=== PATIENT | female | born 1955 | race Two or more races ===

== ENCOUNTER 2018-08-01 14:09 | Emergency (ER) | payer MEDICAID ==
[~2018-08-01] VITALS: Ht 162.6 cm; Wt 99.6 kg
[~2018-08-01 14:09] MED LIST: ABILIFY5 MG PO; CEFPODOXIME PR200 MG PO; DOXYCYCLINE HY100 MG PO; GLIPIZIDE XL10 MG PO; KEFLEX500 MG PO; LANTUS100 UNITS/ SUB-Q; MAPAP500 M1 PO; METFORMIN HCL1000 MG PO; NOVOLOG100 UNITS/ SUB-Q; NYSTOP60 GM TOP; SEROQUEL100 MG PO; SIMVASTATIN10 MG PO; [UNRECOGNIZED DRUG - OTHER] VI
[2018-08-01] MEDS ORDERED: BACTRIM DS TAB1 EACH PO (18:31)
== END 2018-08-01 18:32 | disposition home or self-care (01) ==
LOC: ED 14:09
DX: N39.0 Urinary tract infection, site not specified (principal); E11.9 Type 2 diabetes mellitus without complications; F25.9 Schizoaffective disorder, unspecified; Z87.891 Personal history of nicotine dependence; Z88.8 Allergy status to other drugs, medicaments and biological substances
CPT/HCPCS: 80053; 81001; 85025; 87077; 87088; 87186; 99284

== ENCOUNTER 2024-09-11 15:12 | Emergency (ER) | payer SELFPAY ==
[~2024-09-11] VITALS: Ht 162.6 cm; Wt 84.8 kg
[~2024-09-11 15:12] MED LIST changes: +BACTRIM DS TAB1 EACH PO
[2024-09-11 18:15] LABS: BASOPHILS 0.1 % (0-2); EOSINOPHILS 1.6 % (0-6); HEMOGLOBIN 7.1 g/dL (12.0-18.0); LYMPHOCYTES 14.7 % (24-44); MCHC 30.6 g/dl (30-36); MCV 65.3 fl (81-99); MONOCYTES 4.9 % (0-12); NEUTROPHILS 78.7 % (39-80); PLATELET COUNT 389 K/uL (140-440); RBC 3.53 M/ul (4.3-5.7); RDW 18.2 (10.5-15.0)
[2024-09-11 18:33] LABS: ALBUMIN 1.7 g/dL (3.4-5.0); ALBUMIN/GLOBULIN RATIO 0.34 (1.1-2.4); ANION GAP 12.7 (7-21); BILIRUBIN, TOTAL 0.2 mg/dL (0.2-1.0); BUN/CREATININE RATIO 25.55 (6.0-28.6); CALCIUM 8.7 mg/dL (8.5-10.1); CREATININE, SERUM 0.9 mg/dL (0.55-1.02); POTASSIUM 3.7 mmol/L (3.5-5.1); PROTEIN, TOTAL 6.7 g/dL (6.4-8.2)
[2024-09-11] MEDS ORDERED: SODIUM CHLORIDE 0.9% 1,000 ML IV PRN (19:00)
[2024-09-11] MEDS ORDERED: DAPTOmycin 500 MG/10 ML VIAL IV ONE (19:45)
[2024-09-11] MEDS ORDERED: APIXABAN 5 MG TAB PO ONE (20:30)
[2024-09-11 21:13] LABS: ABO A; ANTIBODY SCREEN NEGATIVE; RH POSITIVE
[2024-09-11] MEDS ORDERED: QUETIAPINE FUMARATE 100 MG TAB PO SCH (22:25)
[2024-09-11] MEDS ORDERED: ACETAMINOPHEN 325 MG TAB PO PRN (22:30)
[2024-09-11] MEDS ORDERED: CEFEPIME HCL 2 GM in DEXTROSE 5% 100 ML IV ONE (22:30)
[2024-09-11] MEDS ORDERED: ondansetron HCL 4 MG/2 ML VIAL IV PRN (22:30)
[2024-09-11] MEDS ORDERED: MORPHINE SULFATE 4 MG/ML VIAL IV PRN (22:30)
[2024-09-11 22:48] LABS: ABO A; RH POSITIVE
[2024-09-11 22:48] LABS: IS CROSSMATCH COMPATIBLE
[2024-09-11 23:07] VITALS: BP 113/72
[2024-09-12] MEDS ORDERED: CEFEPIME HCL 2 GM in DEXTROSE 5% 100 ML IV SCH (06:00)
[2024-09-12] MEDS ORDERED: Insulin Regular, Human 100 UNIT/ML ML SUB-Q SCH (07:00)
[2024-09-12] MEDS ORDERED: DAPTOmycin 500 MG/10 ML VIAL IV SCH (09:00)
[2024-09-12] MEDS ORDERED: APIXABAN 5 MG TAB PO SCH (09:00)
== END 2024-09-11 22:45 | disposition left against medical advice (07) ==
LOC: ED 15:12
PROVIDERS: Emergency Medicine; Family Medicine
DX: L03.116 Cellulitis of left lower limb (principal); L03.115 Cellulitis of right lower limb; D64.9 Anemia, unspecified; I82.412 Acute embolism and thrombosis of left femoral vein; I82.432 Acute embolism and thrombosis of left popliteal vein; E11.9 Type 2 diabetes mellitus without complications; Z53.29 Procedure and treatment not carried out because of patient's decision for other reasons; Z87.891 Personal history of nicotine dependence; Z88.8 Allergy status to other drugs, medicaments and biological substances
CPT/HCPCS: 36415; 80053; 83605; 83735; 85025; 85060; 86850; 86900; 86901; 86922; 93971; J0878; J7030

== ENCOUNTER 2024-09-13 13:07 | Inpatient (IN) | payer MEDICARE ==
[~2024-09-13] VITALS: Ht 162.6 cm; Wt 89.8 kg
--- OUTSIDE RECORDS SUMMARY | 2024-09-13 13:08 | XMS ---
PreManage Notification: RADHA TOLBERT Security Flight Instructor Events No recent Security Events currently on file CRITERIA MET - [facility] - 2 Visits in 30 Days CARE PROVIDERS -, Deniz Fuller- Dentist: Air Brake Tester [facility] PHONE: [phone] Naheed has no Care Guidelines for this patient. [place] VISIT COUNT (12 MO.) 2 [facility] TOTAL 2 NOTE: Visits indicate total known visits. ED/UCC VISIT TRACKING (12 MO.) 09/13/2024 13:07 ERIC Wu OR TYPE: Emergency COMPLAINT: - LT LEG SWELLING 09/11/2024 15:13 ERIC Wu OR TYPE: Emergency COMPLAINT: - LEG SWELLING DIAGNOSES: - Acute embolism and thrombosis of left femoral vein - Acute embolism and thrombosis of left popliteal vein - Allergy status to other drugs, medicaments and biological substances - Anemia, unspecified - Cellulitis of left lower limb - Cellulitis of right lower limb - Localized swelling, mass and lump, lower limb, bilateral - Personal history of nicotine dependence - Procedure and treatment not carried out because of patient's decision for other reasons - Type 2 diabetes mellitus without complications INPATIENT VISIT TRACKING (12 MO.) No inpatient visits to display in this time frame [email or web address]
[2024-09-13] MEDS ORDERED: SODIUM CHLORIDE 0.9% 1,000 ML IV PRN (13:30)
[2024-09-13 13:35] LABS: BASOPHILS 0.3 % (0-2); EOSINOPHILS 0.7 % (0-6); HEMOGLOBIN 6.8 g/dL (12.0-18.0); LYMPHOCYTES 7.6 % (24-44); MCHC 30.8 g/dl (30-36); MCV 64.9 fl (81-99); MONOCYTES 3.6 % (0-12); NEUTROPHILS 87.8 % (39-80); PLATELET COUNT 402 K/uL (140-440); RBC 3.39 M/ul (4.3-5.7); RDW 17.8 (10.5-15.0)
[2024-09-13 13:55] LABS: ALBUMIN 1.8 g/dL (3.4-5.0); ALBUMIN/GLOBULIN RATIO 0.36 (1.1-2.4); ANION GAP 13.6 (7-21); BILIRUBIN, TOTAL 0.2 mg/dL (0.2-1.0); BUN/CREATININE RATIO 29.21 (6.0-28.6); CALCIUM 8.6 mg/dL (8.5-10.1); CREATININE, SERUM 0.89 mg/dL (0.55-1.02); POTASSIUM 4.6 mmol/L (3.5-5.1); PROTEIN, TOTAL 6.8 g/dL (6.4-8.2)
[2024-09-13 14:00] LABS: LACTIC ACID, BLOOD 2.9 mmol/L (0.4-2.0)
[2024-09-13] MEDS ORDERED: DAPTOmycin 500 MG/10 ML VIAL IV ONE (14:30)
[2024-09-13] MEDS ORDERED: CEFAZOLIN SODIUM 2 GM/20 ML SYR IV ONE (14:30)
[2024-09-13] MEDS ORDERED: VANCOMYCIN PER PHARMACY PROTOCOL IV ONE (14:30)
[2024-09-13] MEDS ORDERED: LINEZOLID 600 MG BAG IV ONE (15:00)
[2024-09-13 15:12] LABS: ABO A; ANTIBODY SCREEN NEGATIVE; IS CROSSMATCH COMPATIBLE; RH POSITIVE
[2024-09-13 15:23] LABS: BILIRUBIN, URINE NEGATIVE (negative); BLOOD/HGB, URINE TRACE-I (Negative); KETONE, URINE NEGATIVE (Negative); LEUK ESTERASE, URINE SMALL (negative); NITRITE, URINE POSITIVE (negative)
[2024-09-13 15:37] LABS: BACTERIA, URINE 1+ /hpf (negative); CASTS, URINE NONE SEEN \\lpf; COLLECTION TYPE, URINE CLEAN CATCH; CRYSTALS, URINE NONE SEEN (0-1+); EPITHELIAL CELLS, URINE NONE SEEN /lpf (0-1+); REFLEX CULTURE, URINE Yes (No)
[2024-09-13] MEDS ORDERED: Rivaroxaban 10 MG TAB PO ONE (16:00)
[2024-09-13] MEDS ORDERED: DEXTROSE 5% 1,000 ML IV PRN (16:30)
[2024-09-13] MEDS ORDERED: ACETAMINOPHEN 325 MG TAB PO PRN (16:30)
[2024-09-13] MEDS ORDERED: DEXTROSE 50% 50 ML SYR IV PRN ×2 (16:30)
[2024-09-13] MEDS ORDERED: IBLOOD GLUCOSE TEST STRIP 1 EA TEST XX PRN (16:30)
[2024-09-13] MEDS ORDERED: ondansetron HCL 4 MG/2 ML VIAL IV PRN (16:30)
[2024-09-13] MEDS ORDERED: GLUCAGON,HUMAN RECOMBINANT 1 MG/ML VIAL SUB-Q PRN (16:30)
[2024-09-13] MEDS ORDERED: IBLOOD GLUCOSE TEST STRIP 1 EA TEST VI SCH (17:00)
[2024-09-13] MEDS ORDERED: INSULIN LISPRO 100 UNIT/ML ML SUB-Q SCH (17:00)
--- NOTE | 2024-09-13 17:40 | NUR ---
PT TO RM 115 VIA STRETCHER FROM ER. REPORT RECEIVED FROM LAKE FELIZ. PT HAS BLOOD INFUSING (STARTED IN ER) TO R) AC, PT TOLERATING WELL. ROOM ORIENTATION COMPLETE AND CALL LIGHT WITHIN REACH.
[2024-09-13 17:54] VITALS: BP 119/69
--- NOTE | 2024-09-13 18:26 | NUR ---
PT SITTING UP IN BED EATING DINNER, TOLERATING WELL. LLE ELEVATED ON PILLOW, PICTURES TAKEN. BED ALARM ON. CALL LIGHT WITHIN REACH. NO REQUESTS AT THIS TIME.
--- NOTE | 2024-09-13 19:58 | NUR ---
RECEIVED REPORT FROM VASU AT 1910. PT EATING DINNER WITH LIGHTS ON. BEDALARM IN PLACE. AT 1949, THIS RN INTO ROOM, INTRODUCED SELF, UPDATED WHITE BOARD. PT ATE 100% DINNER. PT ASKED ABOUT THE "PEE" TUBE. REASSURANCE GIVEN. ASSISTED WITH TV AND CHANNEL.
[2024-09-13 20:11] VITALS: BP 112/46
--- NOTE | 2024-09-13 20:20 | NUR ---
ADMISSION ASSESSMENT COMPLETED. A/O, WITH CONVERSATIONS VARYING ON AND OFF TOPIC.IV FLUSHES WELL, SL. RA. RIGHT LEG WITHTRACE EDEMA, NONPITTING, SKIN IS THICK, LEATHERY TEXTURE. BACK CALF WITH WRINKLES, WITH PATCHY AREA OF PEELING SCALEY SKIN. DRY, AND WARM, NOT HOT. LEFT LEG, FOOT THICK LEATHERY TEXTURE, SWOLLEN, RED, HOT. ANKLE, MERA RED HOT WITH WHITE SCALING AREAS. BACK CALF WITH WEEPING AREAS, SMALL BLISTERS. SHINNY. COMPLAINS OF PAIN IN LEFT LEG, HANGING IT OFF THE BED. ENCOURAGED ELEVATING LEG HOWEVER SHE REFUSED SAID IT FEELS BETTER HANGING OFF THE BED. STATES SHE SLEEPS IN A CHAIR AT HOME. PT TELLING THIS RN THAT SHE HAD "BAD BLOOD" SO SHE GOT SOME NEW BLOOD TODAY. VS COMPLETED. PUREWICK IN PLACE.
[2024-09-13] MEDS ORDERED: Rivaroxaban 10 MG TAB PO SCH (21:30)
--- NOTE | 2024-09-13 21:34 | EKG ---
[facility] [address] [facility] [place] [address] Signed Sinus tachycardia Inferior infarct , age undetermined Possible Anterior infarct , age undetermined Abnormal ECG No previous ECGs available Confirmed by Anuja Schneider MD () on 09/13/2024 9:34:37 PM Electronically Signed By: ANUJA SCHNEIDER MD 09/13/24 2134 PATIENT NAME: IRIS TOLBERTA Traan Electrocardiogram DATE OF : 59 PHYSICIAN: ANUJA SCHNEIDER MD REPORT #: [id number] REPORT IS CONFIDENTIAL AND NOT TO BE RELEASED WITHOUT AUTHORIZATION
[2024-09-13] MEDS ORDERED: CEFTRIAXONE SODIUM 2 GM in SODIUM CHLORIDE 0.9% 100 ML IV SCH (21:40)
[2024-09-13 21:41] LABS: BASOPHILS 0.4 % (0-2); EOSINOPHILS 1.2 % (0-6); HEMATOCRIT 22.6 % (35.0-50.0); HEMOGLOBIN 7.1 g/dL (12.0-18.0); LYMPHOCYTES 11.6 % (24-44); MCH 21.1 (27-36); MCHC 31.4 g/dl (30-36); MCV 67.1 fl (81-99); MONOCYTES 4.1 % (0-12); NEUTROPHILS 82.7 % (39-80); PLATELET COUNT 349 K/uL (140-440); RBC 3.37 M/ul (4.3-5.7); RDW 19.2 (10.5-15.0)
[2024-09-13] MEDS ORDERED: SODIUM CHLORIDE 0.9% 1,000 ML IV SCH (21:45)
[2024-09-13] MEDS ORDERED: CEFTRIAXONE SODIUM 2 GM VIAL ONE (21:52)
[2024-09-13 22:27] LABS: IS CROSSMATCH COMPATIBLE
--- NOTE | 2024-09-13 23:20 | NUR ---
IV SITE FLUSHED WNL, DRESSING ON IV CHANGED. BLOOD RETURN NOTED. BLOOD PRODUCTS STARTED AT 2316, INFUSING WITH PUMP. TWO RN VERIFICATION WITH TRINI MEDINA PER POLICY. VSS. TRINI MEDINA REMAINS IN ROOM FOR MONITORING.
--- NOTE | 2024-09-13 23:51 | NUR ---
ROUNDED ON PT. PT MOSTLY SLEEPY, BUT WAKENS WITH NOISE. BLOOD INFUSING, WNL.
[2024-09-14] VITALS (10 sets, daily range): BP systolic 111–128; BP diastolic 45–53
--- NOTE | 2024-09-14 01:58 | NUR ---
INFUSION OF BLOOD COMPLETE AT 0125. PT MOSTLY SLEEPY, WAKES TO NOISE. PUREWICK WITH SHAHNAZ URINE. PT DENIES NEEDS.
--- NOTE | 2024-09-14 03:20 | NUR ---
ROUNDED ON PT. EYES CLOSED RESP ENEN, UNLABORED.
--- NOTE | 2024-09-14 05:10 | NUR ---
ASSESSMENT COMPLETE. NOTED TEMP 100.0; LLE UNCHANGED THIS SHIFT. DRESSING SATURATED, CHANGED, WITH ABD AND GAUZE WRAP. PT STATES PAIN ONLY WHEN ANKLE IS MOVED, AND SOME BURNING LLE CALF, BUT IS IMPROVED SINCE ADMISSION. PUREWICK CHANGED, INCONT CARE, LARGE INCONT URINE. NOTED PT LIFTING LEFT LEG MUCH BETTER THAN BEGINING OF SHIFT. SHE WAS UNABLE TO ASSIST WITH THE LIFT, BUT THIS AM, SHE LIFTS HER LEG UP IN THE AIR FOR THE DRESSING CHANGE. TURNS SELF WITH ASSISTANCE.
[2024-09-14 06:24] LABS: BASOPHILS 0.2 % (0-2); EOSINOPHILS 1.3 % (0-6); HEMATOCRIT 23.6 % (35.0-50.0); HEMOGLOBIN 7.7 g/dL (12.0-18.0); LYMPHOCYTES 13.9 % (24-44); MCH 22.3 (27-36); MCHC 32.6 g/dl (30-36); MCV 68.4 fl (81-99); MONOCYTES 4.9 % (0-12); NEUTROPHILS 79.7 % (39-80); PLATELET COUNT 304 K/uL (140-440); RBC 3.46 M/ul (4.3-5.7); RDW 21.2 (10.5-15.0)
[2024-09-14 06:46] LABS: ALBUMIN 1.3 g/dL (3.4-5.0); ALBUMIN/GLOBULIN RATIO 0.33 (1.1-2.4); ANION GAP 12.5 (7-21); BILIRUBIN, TOTAL 0.6 mg/dL (0.2-1.0); BUN/CREATININE RATIO 22.03 (6.0-28.6); CALCIUM 7.8 mg/dL (8.5-10.1); CREATININE, SERUM 0.59 mg/dL (0.55-1.02); MAGNESIUM 1.4 mg/dL (1.8-2.4); PHOSPHORUS, INORGANIC 2.6 mg/dL (2.5-4.9); POTASSIUM 4.5 mmol/L (3.5-5.1); PROTEIN, TOTAL 5.2 g/dL (6.4-8.2)
--- NOTE | 2024-09-14 07:15 | NUR ---
REPORT RECEIVED FROM ELEVATING GRADER OPERATOR RN PATIENT RESTING IN BED. REQUESTING FRESH ICE WATER. ICE WATER GIVEN. PATIENT DENIES ANY FURTHER NEEDS. CALL LIGHT WITHIN REACH.
--- NOTE | 2024-09-14 07:39 | NUR ---
UR CLINICAL REVIEW: 2 MN FOR VERSALUS-PER CORNER CUTTER MACHINE OPERATOR MEETS INPT FOR CELLULITIS/DVT MEDICARE INPT 09/13/24 @ 1631 ORDER MATCHES REG NO AUTH REQUIRED PER MEDICARE GUIDELINES DISCHARGE TO HOME WHEN STABLE
[2024-09-14] MEDS ORDERED: Rivaroxaban 10 MG TAB PO SCH (08:00)
[2024-09-14] MEDS ORDERED: MAGNESIUM SULFATE 2 GM/50 ML BAG IV SCH (08:00)
--- NOTE | 2024-09-14 08:15 | NUR ---
IN TO ROUND ON PATIENT. DENEIS ANY NEEDS AT THIS TIME. IVF INFUSING WITH NO ISSUES. CALL LIGHT WITHIN REACH BED ALARM ON.
[2024-09-14] MEDS ORDERED: LINEZOLID 600 MG BAG IV SCH (09:00)
[2024-09-14] MEDS ORDERED: MICONAZOLE NITRATE 1 EA BTL TOP SCH (09:00)
--- NOTE | 2024-09-14 09:46 | NUR ---
PATIENT RESTING IN BED EATING BREAKFAST. DENIES ANY PAIN OR DISCOMFORT AT THIS TIME. AM MEDICATIONS ADMINSTERED. IV SITE PATENT AND WNL. DRESSING TO LLE REMAINS CDI. PATIENT LUNG SOUNDS CTA DIM IN BASES. HEART SOUNDS REGULAR. BOWEL TONES ACTIVE X 4. PEDAL PULSES PALPABLE. NOTED REDNESS TO LLE REMAINS WITHIN DRAWN MARGINS. DENEIS ANY FURTHER NEEDS CALL LIGHT WITHIN REACH.
--- NOTE | 2024-09-14 10:37 | NUR ---
ALERT AND ORIENTED IN BED, LEGS ELEVATED. SHE LIVES WITH SISTER IN [place]. THEY DO HAVE 5 STEPS TO GET INTO THE HOME BUT THERE ARE RAILS SO SHE DOES NOT HAVE AN ISSUE WITH THE STAIRS. SHE HAS NO DME. PATIENT ALSO HAS NO PCP. SHE DOES NOT DRIVE AND NIETHER DOES HER SISTER. THEY PRIMARILY UTILIZE PUBLIC TRANSPORT. PATIENT HAS DIFFICULTY WITH FOOD, BUT DOES UTILIZE THE FOOD PANTRY TWICE/WEEK FOR FOOD. NO SNAP BENEFITS. STATES SHE THINKS THEY HAVE ENOUGH FOOD USING THE PANTRY. ATTEMPT TO ESTABLISH PCP AT [facility] [phone]. THEY ARE REQUESTING RECORDS BE FAXED TO [phone] FOR REVIEW. RECORDS FAXED.
--- NOTE | 2024-09-14 10:39 | NUR ---
VISITED DURING SPIRITUAL CARE ROUNDS. PT IN OVERALL GOOD SPIRITS, TALKED OF ANIMALS OWNED, FAMILY, DENIED IMMEDIATE NEEDS. CORE LAYER MACHINE OPERATOR PROVIDED SUPPORTIVE PRSENCE, HOSPITALITY, PRAYER, FACILITATED INTERACTION WITH THERAPY ANIMAL. PT EXPRESSED GRATITUDE.
--- NOTE | 2024-09-14 10:42 | NUR ---
MED REC COMPLETE
--- NOTE | 2024-09-14 11:00 | NUR ---
PATIENT NOTED TO HAVE INCONTENT EPISODE OF STOOL. PAITENT BREIF CHANGED AND NEW PUREWICK PLACED. POWDER APPLIED TO PANNUS AND GROIN AREA. NO FURTHER NEEDS. CALL LIGHT WITHIN REACH.
[2024-09-14] MEDS ORDERED: PHARMACY RENAL DOSE ADJUSTMENT 1 DOSE MISC PO SCH (12:00)
--- NOTE | 2024-09-14 12:29 | NUR ---
PATIENT RESTING IN BED LISTENING TO MUSIC. DENIES ANY NEEDS. SS INSULIN ADMINSTERED. IV SITE REMAINS WNL. IVF INFUSING WNL. CALL LIGHT WITHIN REACH.
--- NOTE | 2024-09-14 13:39 | NUR ---
PT RESTING IN BED, FINISHED WITH LUN, GOOD APPETITE, STATES THE MEAL WAS WONDERFUL. IV FLUIDS STARTED, (R) AC FLUSHED WELL. DENIES NEEDS, LISTENING TO MUSIC, CALL LIGHT WITHIN REACH.
--- NOTE | 2024-09-14 15:18 | NUR ---
PHARMACIST MENTIONED THIS PATIENT WOULD LIKE TO TALK TO A DIETITIAN ABOUT A DIABETIC DIET. THIS RD MET WITH PATIENT THIS AFTERNOON. PATIENT REPEATED HERSELF MULTIPLE TIMES. SHE LIVES WITH HER OLDER SISTER IN [facility]. SHE HAS HAD TYPE 2 DM SINCE 2016, DOES NOT NORMALLY TAKE INSULIN AT HOME. PATIENT STATES HER SISTER TOLD HER TO EAT MORE SALADS AND KALE. I PROVIDED PATIENT WITH A DIABETES-FRIENDLY PLATE PICTURE. EXPLAINED HALF OF THE PLATE SHOULD BE NON-STARCHY VEGGIES, 1/4 OF THE PLATE SHOULD BE PROTEIN, AND THE OTHER 1/4 OF THE PLATE SHOULD BE STARCH/GRAIN. PROVIDED A LIST OF NON-STARCHY VEGGIES - THESE DON'T RAISE THE BLOOD SUGAR, NEITHER DO PROTEINS. PATIENT SEEMS TO EAT TORTILLAS, PASTAS, BREADS, AND ICE CREAM REGULARLY. EXPLAINED THAT SHE CAN STILL HAVE 1 SMALL TORTILLA, BUT DEFINITELY HAVE MEAT OR CHICKEN AND LOTS OF OTHER VEGGIES WITH IT. LOW CARB SNACK LIST, CARB COUNTING HANDOUT FOR DIABETES, AND LOW GLYCEMIC FRUIT HANDOUT PROVIDED. NOT SURE IF PATIENT GRASPED THE INFO VERY WELL SINCE SHE REPEATED HERSELF A FEW TIMES. SHE IS ENJOYING THE MEALS ON A 60 GM CONS CARB DIET. PATIENT DOES NOT APPEAR AT NUTRITION RISK AT THIS TIME. RD TO FOLLOW UP IN 7-10 DAYS IF STILL HERE.
--- NOTE | 2024-09-14 15:29 | NUR ---
[facility] DECLINED PATIENT. CALLED [facility] IN [place], [place] AT [phone] TO SCHEDULE FOLLOW-UP. THEY STATE SHE HAS BEEN SEEN IN THEIR CLINIC PREVIOUSLY FOLLOW-UP APPOINTMENT SCHEDULED FOR SUNDAY, SEPTEMBER 22, 2024 @ 1120. CLINICALS FAXED TO CLINIC AT FAX [phone].
--- NOTE | 2024-09-14 16:15 | NUR ---
PATIENT RESTING IN BED. DRESSING TO LLE REMAINS CDI AT THIS TIME. REDNESS REMAINS WITHIN MARGINS. NO FURTHER NEEDS. CALL LIGHT WITHIN REACH.
--- NOTE | 2024-09-14 17:27 | NUR ---
PT SITTING UP IN HER BED HAVING DINNER. FRESH ICE WATER PROVIDED, PT REQUESTING SOMETHING TO DRINK WITH DINNER APPLE JUICE GIVEN. PT INSULIN GIVEN PER SLIDING SCALE, ALONG WITH MEDS, TOLERATED WELL - SEE MAR. PT DENIES ANY FURTHER NEEDS AT THIS TIME. CALL LIGHT WITHIN REACH.
--- NOTE | 2024-09-14 18:08 | NUR ---
IN TO ROUND ON PATIENT. DRESSING TO LLE REMAINS IN PLACE. IV SITE WNL. IVF INFUSING WNL. DENIES ANY FURTHER NEEDS. CALL LIGHT WITHIN REACH.
--- NOTE | 2024-09-14 18:53 | NUR ---
PATIENT IS IN BED AT THIS TIME, DIRECTOR OF MANAGED CARE CHARTED VITALS AND I&O'S, CALL LIGHT WITH IN REACH. NOTHING ELSE NEEDED AT THIS TIME.
--- NOTE | 2024-09-14 20:08 | NUR ---
Received report. Pt alert, resting in bed, no needs at this time.
[2024-09-14] MEDS ORDERED: CEFTRIAXONE SODIUM 2 GM VIAL ONE (20:11)
--- NOTE | 2024-09-14 21:02 | NUR ---
ASSESSMENT AND EVENING MEDS. CURRENTLY RUNNING CEFTRIAXONE
--- NOTE | 2024-09-14 21:32 | NUR ---
[facility]ED [facility]OLID. [facility]
--- NOTE | 2024-09-14 21:45 | NUR ---
APPROX TIME: MARCELLA LIAO CALLED AND ASKED FOR pt UPDATE. pt GAVE THIS RN VERBAL OKAY TO PROVIDE UPDDATE. PRIMARY RN IN ANOTHER ROOM AND UNAVAILABLE TO GIVE UPDATE AT THIS TIME. UPDATE GIVEN TO MARCELLA, QUESTIONS ANSWERED.
[2024-09-15] VITALS (7 sets, daily range): BP systolic 120–128; BP diastolic 57–65
--- NOTE | 2024-09-15 00:19 | NUR ---
CHANGED IV FLUID BAG. PT ALERT, CALMLY WATCHING TV. NO NEEDS ID'D. CALL LIGHTI N REACH
--- NOTE | 2024-09-15 02:52 | NUR ---
Pt alert, resting in bed watching TV. Call light in reach
--- NOTE | 2024-09-15 04:49 | NUR ---
PT ASLEEP, VISIBLE RISE AND FALL OF CHEST. CALL LIGHT IN REACH ON BEDSIDE TABLE
--- NOTE | 2024-09-15 05:13 | NUR ---
A&Ox4, pleasant. LLE cellulitis with redness and edema, elevated on pillow overnight. Pt declines OOB on shift. Encouraged to shift weight frequently. Plan for possible dc home today.
[2024-09-15 05:24] LABS: BASOPHILS 0.3 % (0-2); EOSINOPHILS 2.8 % (0-6); HEMATOCRIT 25.3 % (35.0-50.0); HEMOGLOBIN 8.4 g/dL (12.0-18.0); LYMPHOCYTES 19.2 % (24-44); MCH 22.8 (27-36); MCV 69.1 fl (81-99); NEUTROPHILS 72.7 % (39-80); PLATELET COUNT 333 K/uL (140-440); RBC 3.67 M/ul (4.3-5.7); RDW 21.5 (10.5-15.0)
[2024-09-15 05:46] LABS: ALBUMIN 1.5 g/dL (3.4-5.0); ALBUMIN/GLOBULIN RATIO 0.36 (1.1-2.4); ANION GAP 9.5 (7-21); BILIRUBIN, TOTAL 0.3 mg/dL (0.2-1.0); BUN/CREATININE RATIO 12.5 (6.0-28.6); CALCIUM 7.9 mg/dL (8.5-10.1); CREATININE, SERUM 0.56 mg/dL (0.55-1.02); POTASSIUM 4.5 mmol/L (3.5-5.1); PROTEIN, TOTAL 5.7 g/dL (6.4-8.2)
--- NOTE | 2024-09-15 06:22 | NUR ---
VETERINARY VIRUS SERUM INSPECTOR OBTAINED VITALS AND I&O. PT STATES NO NEEDS AT THIS TIME. CALL LIGHT WITHIN REACH.
--- NOTE | 2024-09-15 07:20 | NUR ---
REPORT RECEIVED FROM WEIGHT REDUCTION SPECIALIST RN. PATIENT RESTING IN BED TALKING ON THE PHONE. IV INFUSING WNL. PATIENT DENIES ANY NEEDS AT THIS TIME. CALL LIGHT WITHIN REACH.
--- NOTE | 2024-09-15 08:15 | NUR ---
PATIENT AWAKE EATING BREAKFAST IN BED. DENIES ANY PAIN OR DISCOMFORT. IV SITE PATENT. IV ABX ADMINISTERED. PATIENT NOTED TO HAVE LARGE LOOSE BM. BEDDING CHANGED, PATIENT CLEANED NEW GOWN PUT ON PATIENT. NOTED SKIN BREAKDOWN IN GROIN AND UNDER PANNUS. DESENIX POWDER APPLIED PER ORDERS. NEW PUREWICK PLACED. PATIENT WITH NO FURTHER NEEDS. CALL LIGHT WITHIN REACH.
--- NOTE | 2024-09-15 08:58 | NUR ---
3PA BED CHANGED. SPITZ BATH GIVEN. PUREWICK CHANGED 0845. CLEAN GOWN PROVIDED. TRINI SOLIS APPLIED POWDER TO PATIENT'S GROIN, BELLY, AND UNDER BREASTS. STUDENT NURSE KAMERON HOOKED UP IV.
[2024-09-15] MEDS ORDERED: INSULIN GLARGINE-YFGN 100 UNIT/ML ML SUB-Q SCH (09:00)
--- NOTE | 2024-09-15 09:52 | NUR ---
PATIENT WORKING WITH PT AT THIS TIME.
--- NOTE | 2024-09-15 10:22 | NUR ---
PATIENT AWAKE RESTING IN RECLINER. REPORTS PAIN TO LLE. PRN ADMINSTERED. NO FURTHER NEEDS. CALL LIGHT WITHIN REACH. CHAIR ALARM IN PLACE.
--- NOTE | 2024-09-15 10:31 | NUR ---
LLE NOTED TO HAVE INCREASED WEAPING. LLE PLACED ON CHUCKS PAD AND LEG IS MEL AT AT THIS TIME.
--- NOTE | 2024-09-15 11:18 | NUR ---
PT/OT WORKED WITH PATIENT AND THEY ARE CURRENTLY SITTING UP IN THEIR CHAIR. CALL LIGHT AND PERSONAL ITEMS ARE WITHIN REACH. NO AZEEM WERE REQUESTED.
--- NOTE | 2024-09-15 11:31 | NUR ---
PT WAS ON THE PHONE WITH THE KITCHEN ORDERING LUNCH. PT ORDERED ALL THE ITEMS ON THE MENU AND SEEMED CONFUSED WHEN THE CAFETERIA QUESTIONED HER CHOICES.
--- NOTE | 2024-09-15 12:08 | NUR ---
PATIENT RESTING IN RECLINER. MD DISCUSSED POC WITH PATIENT. BLOOD SUGAR OBTAINED.
--- NOTE | 2024-09-15 14:24 | NUR ---
PATIENT WAS IN HER CHAIR AT THIS TIME, BIRD KEEPER ASSISTED TO THE RESTROOM AND BACK TO CHAIR. BIRD KEEPER CHARTED VITALS AND I&O'S, GOT FRESH ICE AND WATER, AND NEW CHUCKS. CALL LIGHT WITH IN REACH AND NOTHING ELSE NEEDED AT THIS TIME.
--- NOTE | 2024-09-15 15:40 | NUR ---
PATIENT RESTING IN RECLINER. DENIES ANY PAIN OR DISCOMFORT. LLE REMAINS ELEVATED. REDNESS TO LLE REMAINS WITHIN DRAWN ON MARGINS. LLE IS MEL WITH NOTED SKIN BREAKDOWN. LLE CONTINUES TO WEAP WITH YELLOW DRAINAGE. IVF INFUSING WNL. IV SITE PATENT. NO FURTHER NEEDS AT THIS TIME. CALL LIGHT WITHIN REACH. CHAIR ALARM IN PLACE.
--- NOTE | 2024-09-15 16:30 | NUR ---
ROUNDING ON PATIENT. DENEIS ANY NEEDS AT THIS TIME. OT STAFF WITH PATIENT.
--- NOTE | 2024-09-15 17:30 | NUR ---
VSS. CHEMICAL PLANT OPERATOR STAFF ASSISTED PATIENT TO BATHROOM WITH 1 PA ASSIST AND FWW. PATIENT TOLLERATED WELL VOID AND BM NOTED. PATIENT LLE REMAINS MEL. REDNESS IS RECEEDING WITHIN DRAWN MARGINS. PATIENT DENIES ANY PAIN AT THIS TIME. WHEEPING CONTINUES. PATIENT WITH NO FURTHER NEEDS. CALL LIGHT WITHIN REACH. CHAIR ALARM IN PLACE.
--- NOTE | 2024-09-15 18:20 | NUR ---
PATIENT WAS IN HER ROOM YELLING VERY LOUDLY, SHOUTING THE F WORD AT "SOMEONE" MARTITA ALVARENGA AND I WENT TO CHECK ON HER AND MAKE SURE SHE WAS OK. SOON WE KNOCKED AND OPENED THE DOOR SHE SAID SHE WAS FINE. THERE WAS NO ONE IN THE ROOM AND SHE WAS NOT ON THE PHONE. SHE SAID SHE WAS GOOD AND DIDNT NEED ANYTHING. THEN SOON WE SHUT THE DOOR SHE STARTED TALKING AGRESSIVLY TO "SOMEONE" AGAIN. SHE HAS BEEN TALKING TO NO ONE ALL DAY AND IT HAS ESCALATED THE DAY HAS PROGRESSED.
--- NOTE | 2024-09-15 18:32 | NUR ---
PATIENT WAS HEARD ANGRILY YELLING AT INCREASING VOLUME. MARTITA ALVARENGA AND I WENT IN TO CHECK ON THEM AND THEY WERE PLEASANT AND HAPPY TO SEE US. PATIENT INFORMED US THEY WERE TALKING TO THEMSELF AND THEY WERE OKAY. CARES WERE REFUSED. CHARGE NURSE AYALA AND RN IRMA INFORMED. PATIENT IS SAFE AND SITTING UP IN THEIR CHAIR WITH THE CHAIR ALARM SET.
--- NOTE | 2024-09-15 19:43 | NUR ---
RECEIVED REPORT. PT EATING DINNER IN CHAIR, NO NEEDS CURRENTLY. CALL LIGHT IN REACH ON TABLE
[2024-09-15] MEDS ORDERED: CEFTRIAXONE SODIUM 2 GM VIAL ONE (20:21)
--- NOTE | 2024-09-15 20:53 | NUR ---
VITALS, ASSESSMENT, AND BEGAN EVENING MEDS. ASSISTED FROM CHAIR TO BATHROOM, THEN BACK TO BED. GIVEN TYLENOL FOR LLE PAIN. ELEVATED AFFECTED LIMB, AND LEFT OPEN TO AIR. CALL LIGHT IN REACH, NO FURTHER NEEDS AT THIS TIME
--- NOTE | 2024-09-15 21:02 | NUR ---
MECHANICAL SYSTEMS DESIGNER OBTAINED VITALS AND I&O. PUREROCCK CHANGED. PT STATES NO FURTHER NEEDS AT THIS TIME. CALL LIGHT WITHIN REACH AND RN IN ROOM.
--- NOTE | 2024-09-15 21:50 | NUR ---
INITIATED IV LINEZOLID AND REFRESHED PT WATER. HELPED ADJUST IN BED. PT REPORTS SHE WOULD LIKE TO SLEEP TONIGHT, SHE DID NOT SLEEP WELL LAST NIGHT. CALL LIGHT IN REACH, BED ALARM ACTIVE
--- NOTE | 2024-09-16 00:05 | NUR ---
Pt awake in bed eating leftovers from dinner. No needs at this time, denies pain presently. Call light in reach
--- NOTE | 2024-09-16 03:20 | NUR ---
PT AWAKE, VOCALIZING TO SELF IN ROOM. WHEN ASKED, PT REPORTS SHE IS NOT TALKING TO ANYONE, JUST TO HERSELF. DENIES NEEDS AT THIS TIME, CALL LIGHT IN REACH
--- NOTE | 2024-09-16 03:59 | NUR ---
CALL LIGHT ANSWERED. PT NEEDED TO USE BATHROOM. PHYSICS PROFESSOR 1PA WITH FWW TO BATHROOM. PT VOIDED AND HAD BM. PT ASSISTED BACK TO BED. ICE CHIPS GIVEN AT PT REQUEST. PT STATES NO FURTHER NEEDS AT THIS TIME. CALL LIGHT WITHIN REACH AND BED ALARM ON.
[2024-09-16 05:37] LABS: BASOPHILS 0.2 % (0-2); EOSINOPHILS 3.6 % (0-6); HEMATOCRIT 23.2 % (35.0-50.0); HEMOGLOBIN 7.5 g/dL (12.0-18.0); MCH 22.7 (27-36); MCHC 32.3 g/dl (30-36); MCV 70.3 fl (81-99); MONOCYTES 3.9 % (0-12); NEUTROPHILS 75.3 % (39-80); PLATELET COUNT 334 K/uL (140-440); RBC 3.31 M/ul (4.3-5.7); RDW 21.4 (10.5-15.0)
[2024-09-16 05:49] VITALS: BP 137/58
--- NOTE | 2024-09-16 05:52 | NUR ---
CALL LIGHT ANSWERED. PT NEEDED TO HAVE BM. PEOPLESOFT FINANCIALS CONSULTANT 1PA WITH FWW TO BATHROOM. PT ASSISTED WITH PUTTING ON CLEAN ATTENDS AND ASSISTED TO CHAIR. VITALS AND I&O OBTAINED AND DOCUMENTED. PT STATES NO FURTHER NEEDS AT THIS TIME. CALL LIGHT WITHIN REACH AND CHAIR ALARM ON.
[2024-09-16 05:59] LABS: ALBUMIN 1.3 g/dL (3.4-5.0); ALBUMIN/GLOBULIN RATIO 0.34 (1.1-2.4); ANION GAP 9.4 (7-21); BILIRUBIN, TOTAL 0.1 mg/dL (0.2-1.0); BUN/CREATININE RATIO 14.7 (6.0-28.6); CALCIUM 7.9 mg/dL (8.5-10.1); CREATININE, SERUM 0.68 mg/dL (0.55-1.02); POTASSIUM 4.4 mmol/L (3.5-5.1); PROTEIN, TOTAL 5.1 g/dL (6.4-8.2)
--- NOTE | 2024-09-16 07:26 | NUR ---
REPORT RECEIVED FROM OFFC SPEC RN. PATIENT RESTING IN RECLINER TALKING ON THE PHONE. LLE REDNESS REMAINS WITHIN THE MARGINS DRAWN. NOTED SKIN TO BE DRYING OUT AND SLIGHTLY FLAKY IN AREAS. POSTERIOR LLE REMAINS WHEEPING. LLE MEL AT THIS TIME. DRAINING YELLOW/CLEAR FLUID AT THIS TIME. CHUCKS IN PLACE UNDER LLE. IVF INFUSING WNL. IV SITE APPEARS TO BE WNL. NO FURTHER NEEDS CALL LIGHT WITHIN REACH. CHAIR ALARM IN PLACE.
[2024-09-16] MEDS ORDERED: MAGNESIUM SULFATE 2 GM/50 ML BAG IV ONE (08:15)
--- NOTE | 2024-09-16 08:49 | NUR ---
Board has been updated and call light has been placed within reach. No request from patient. Patient is set up and ready for breakfeast
[2024-09-16] MEDS ORDERED: INSULIN GLARGINE-YFGN 100 UNIT/ML ML SUB-Q SCH (09:00)
--- NOTE | 2024-09-16 09:00 | NUR ---
ASSISTED PATIENT TO BATHROOM WITH 1 PA ASSIST AND FWW. PATIENT BACK TO RECLINER. AM MEDICATION ADMINSTERED. IV SITE APPEARS TO LEAKING. ALERT AND ORIENTED TO PERSON, PLACE AND LOCATION. ABD SOFT NON-TENDER. LEFT LOWER EXTRMITY REDNESS REMAINS WITHIN THE MARGINS DRAWN. REDNESS AND WEAPING CONTINUES. NO FURTHER NEEDS. CALL LIGHT WITHIN REACH, CHAIR ALRM IN PLACE.
[2024-09-16 09:15] VITALS: BP 136/66
--- NOTE | 2024-09-16 10:17 | NUR ---
NEW IV STARTED IN PATIENT RIGHT HAND. TOLLERATED WELL. THRASHER FEEDER WITH PATIENT TO COMPLETE WOUND CARE CONSULT.
--- NOTE | 2024-09-16 11:27 | NUR ---
PATIENT IN BATHROOM WITH PT AT THIS TIME. PRN ADMINSTERED FOR C/O PAIN TO LLE.
--- NOTE | 2024-09-16 12:30 | NUR ---
WOUND CARE CONSULTED FOR SKIN BREAKDOWN ON LEFT LOWER EXTREMITY. HISTORY OF PRESENT ILLNESS: PT IS A 68 YEAR OLD FEMALE ADMITTED ON 09/13/24 FOR LLE CELLULITIS AND LLE DVT. PAST MEDICAL HISTORY: DM, SCHIZOAFFECTIVE DISORDER ALLERGIES: ASPIRIN MARIO SCORE: 14 UPON ASSESSMENT NOTED AREAS OF PARTIAL THICKNESS WOUNDS AND BLISTERS SCATTERED OVER THE ANTERIOR AND POSTERIOR ASPECTS OF THE LLE FROM THE ANKLE TO BELOW THE KNEE. SIGNIFICANT LLE SWELLING PRESENT WITH WEEPING. PT REPORTS THE LLE BECAME SWOLLEN APPROXIMATELY 4 WEEKS AGO. 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 CLASSIFICATION: PARTIAL THICKNESS SIZE: CIRCUMFIRENCIAL WOUND BASE: 100% PINK MOIST NON-GRANULAR TISSUE. LOOSELY ADHERENT SLOUGH/DEBRIDES FROM BROKEN BLISTERS SOAKED AND REMOVED. EDGES: INDISTINCT EXUDATE: Serous , SMALL AMOUNT OF ACTIVE WEEPING. CALDERON WOUND SKIN: INTACT ERYTHEMA MOIST WARM. PICTURES OBTAINED, SEE PAPER CHART. PROCEDURE: VASE SOAK APPLIED OVER WOUND BASES OVER LLE AND ALLOWED TO DWELL X10 MINUTES. LOOSELY ADHERENT SLOUGH/DEBRIDES REMOVED WITH FORCEPTS, GAUZE AND DEBRISOFT LOLLY. PT TOLERATED WELL. ADAPTIC CONTACT LAYER IMPREGNATED WITH TRIPLE ANTIBIOTIC OINTMENT AND APPLIED OVER WOUND BASES, FOLLOWED BY ABD PADS. DRESSINGS SECURED WITH KERLIX GAUZE ROLL AND ELASTIC MARISA BANDAGE. TREATMENT RECOMMENDATIONS LLE CLEANSE WOUNDS WITH VASE SOAKED GAUZE, APPLY GAUZE OVER WOUNDS AND ALLOW TO DWELL FOR 10 MINUTES. REMOVE VASE SOAKED GAUZE AND PAT DRY. IMPREGNATE ADAPTIC CONTACT LAYER WITH TRIPLE ANTIBIOTIC OINTMENT AND APPLY OVER WOUND BASES FOLLOWED BY ABD PADS. SECURE DRESSING WITH KERLIX GAUZE ROLL AND MARISA WRAP ELASTIC BANDAGE. CHANGE DRESSING EVERY 3 DAYS AND NEEDED FOR EXCESS DRAINAGE. GOALS: HEAL. CONTROL DRAINAGE AND REDUCE TOPICAL BACTERIAL BURDEN. WOUND CARE SIGNING OFF. PLEASE RE-CONSULT FOR ANY NEW CONCERNS.
--- NOTE | 2024-09-16 12:30 | NUR ---
SS INSULIN ADMINSTERED. PATIENT EATING LUNCH. REPORTS PAIN AHS IMPROVED. NO FURTHER NEEDS. CALL LIGHT WITHIN REACH.
--- NOTE | 2024-09-16 12:35 | NUR ---
PATIENT IN CHAIR AT THIS TIME. OUTFITTER CABIN WENT INTO PATIENTS ROOM FOR HOURLY ROUNDS. CALL LIGHT WITHIN REACH, NO FURTHER NEEDS AT THIS TIME.
[2024-09-16 13:14] VITALS: BP 121/51
--- NOTE | 2024-09-16 13:15 | NUR ---
PATIENT IN CHAIR AT THIS TIME. SOFTWARE DESIGN ENGINEER CHARTED VITALS AND I&O'S. CALL LIGHT WITHIN REACH, NO FURTHER NEDS AT THIS TIME.
--- NOTE | 2024-09-16 14:29 | NUR ---
PATIENT ASSISTED BACK FROM TOILET BY EMANATIONS ANALYSIS TECHNICIAN. PATIENT IN RECLINER. NO NEEDS AT THIS TIME. CALL LIGHT WITHIN REACH. CHAIR ALARM IN PLACE.
--- NOTE | 2024-09-16 15:56 | NUR ---
IN TO ROUND ON PAITENT. DENIES ANY NEEDS AT THIS TIME. CALL LIGHT WITHIN REACH.
--- NOTE | 2024-09-16 17:45 | NUR ---
SS INSULIN ADMINSTERED. PATIENT EATING DINNER IN RECLINER. REPORTS PAIN TO LLE HAS IMPROVED. DRESSING TO LLE REMAINS CDI. DENEIS ANY FURTHER NEEDS CALL LIGHT WITHIN REACH.
--- NOTE | 2024-09-16 18:21 | NUR ---
PATIENT RESTING IN RECLINER. DENIES ANY NEEDS. TALKING ON THE PHONE AT THIS TIME. CALL LIGHT WITHIN REACH.
[2024-09-16 18:34] VITALS: BP 122/94
--- NOTE | 2024-09-16 18:38 | NUR ---
PATIENT IN HER CHAIR AT THIS TIME, HELP DESK ADMINISTRATOR CHARTED VITALS AND I&O'S CALL LIGHT WITH IN REACH.
[2024-09-16 18:59] VITALS: BP 122/94
--- NOTE | 2024-09-16 19:13 | NUR ---
Received report. Pt alert and watching TV in recliner. No needs at this time, call light in reach
[2024-09-16] MEDS ORDERED: TRIMETHOPRIM/SULFAMETHOXAZOLE 1 EA TAB PO SCH (21:00)
[2024-09-16 21:02] VITALS: BP 138/67
--- NOTE | 2024-09-16 21:09 | NUR ---
Assessment, evening meds. Given Tylenol for mild pain of LLE. Pt in recliner and would like to stay there for the night. Helped position with pillows and blankets. Call light in reach
--- NOTE | 2024-09-16 21:47 | NUR ---
ASSISTED TO BATHROOM, THEN BACK TO RECLINER. PT REQUESTS TO SLEEP IN RECLINER TONIGHT. CALL LIGHT IN REACH ON BEDSIDE TABLE
[2024-09-17] VITALS (12 sets, daily range): BP systolic 98–112; BP diastolic 45–61
--- NOTE | 2024-09-17 00:01 | NUR ---
Pt in recliner, dancing to music from TV. Requests snack, gave sugar free jello and cheese stick. Call light in reach on side table
--- NOTE | 2024-09-17 03:42 | NUR ---
PT IN CHAIR WITH EYES CLOSED, OBSERVED RISE AND FALL OF CHEST. CALL LIGHT IN REACH ON SIDE TABLE. CHAIR ALARM ACTIVE
--- NOTE | 2024-09-17 04:51 | NUR ---
PT AWAKE IN CHAIR. REQUESTS SNACK AND ICE, GIVEN SUGAR FREE JELLO AND ICE. CALL LIGHT IN REACH.
--- NOTE | 2024-09-17 05:11 | NUR ---
VITALS PERFORMED. PT UP IN CHAIR, WATCHING TV, NO NEEDS AT THIS TIME, CALL LIGHT IN REACH
[2024-09-17 05:14] LABS: BASOPHILS 0.1 % (0-2); EOSINOPHILS 3.4 % (0-6); HEMATOCRIT 25.9 % (35.0-50.0); HEMOGLOBIN 8.2 g/dL (12.0-18.0); LYMPHOCYTES 14.6 % (24-44); MCH 22.4 (27-36); MCHC 31.9 g/dl (30-36); MCV 70.2 fl (81-99); MONOCYTES 3.4 % (0-12); NEUTROPHILS 78.5 % (39-80); PLATELET COUNT 368 K/uL (140-440); RBC 3.68 M/ul (4.3-5.7); RDW 22.1 (10.5-15.0)
[2024-09-17 05:35] LABS: ALBUMIN 1.7 g/dL (3.4-5.0); ALBUMIN/GLOBULIN RATIO 0.39 (1.1-2.4); ANION GAP 10.3 (7-21); BILIRUBIN, TOTAL 0.3 mg/dL (0.2-1.0); BUN/CREATININE RATIO 14.58 (6.0-28.6); CALCIUM 8.5 mg/dL (8.5-10.1); CREATININE, SERUM 0.96 mg/dL (0.55-1.02); POTASSIUM 4.3 mmol/L (3.5-5.1); PROTEIN, TOTAL 6.1 g/dL (6.4-8.2)
--- NOTE | 2024-09-17 07:28 | NUR ---
REPORT RECEIVED FROM CALL CENTER DISPATCHER RN. PATIENT RESTING IN RECLINER. DENIES ANY PAIN IN LLE. DRESSING TO LLE REMAINS CDI. PATIENT REPORTS THAT HER LLE FEELS LESS PAIN AND DISCOMFORT WHEN IT IS NOT RESTING ON A SURFACE. RN EDUCATED PATIENT ON IMPORTANCE OF ELEVATING EXTREMITY HOWEVER SHE PERFERS TO HAVE LLE IN A DEPENDENT POSITION. DENEIS ANY FURTHER NEEDS AT THIS TIME. CALL LIGHT WITHIN REACH.
[2024-09-17] MEDS ORDERED: levoFLOXacin 750 MG TAB PO SCH (08:15)
--- NOTE | 2024-09-17 08:45 | NUR ---
AM MEDICATION ADMINSTERED. PATIENT AGREEABLE TO ELEVATE LEG AT THIS TIME. NOTED EDEMA TO LLE HAS INCREASED. PATIENT WITH BREAKFAST. NO FURTHER NEEDS. CALL LIGHT WITHIN REACH.
--- NOTE | 2024-09-17 09:55 | NUR ---
PATIENT SITTING UP IN CHAIR AT THIS TIME. VITALS DONE AND CHARTED. CALL LIGHT IN REACH. NO FURTHER NEEDS AT THIS TIME.
--- NOTE | 2024-09-17 10:35 | NUR ---
IN TO ROUND ON PATIENT. NO NEEDS AT THIS TIME. CALL LIGHT WITHIN REACH. CHAIR ALARM ON.
--- NOTE | 2024-09-17 11:15 | NUR ---
DRESSING TO LLE CHANGED. NOTED DRESSING TO BE SATURATED AND CHUCKS PAD UNDER LEG TO BE SATURATED WITH YELLOW/CLEAR DRAINAGE FROM LLE. LLE REMAINS ELEVATED. LEFT PEDAL PULSE CONFIRMED WITH DOPPLER. PATIENT REPORTS PAIN TO LLE PRN ADMINISTERED. REPORTS FROM PT STAFF THAT PATIENT REFUSED PT THIS DAY. PATIENT IV SITE PATENT AND WNL. PATIENT WITH INCREASED DELUSIONAL CONVERSATIONS THIS SHIFT. HOWEVER PATIENT IS PLESANT AND COOPERATIVE WITH NURSING CARES. NO FURTHER NEEDS AT THIS TIME. CALL LIGHT WITHIN REACH. BED ALARM IN PLACE.
--- NOTE | 2024-09-17 12:40 | NUR ---
PATIENT RESTING IN RECLINER WATCHING TV AND EATING LUNCH. NO NEEDS AT THIS TIME CALL LIGHT WITHIN REACH. CHAIR ALARM ON.
--- NOTE | 2024-09-17 13:49 | NUR ---
VS OBTAINED. PATIENT DENIES ANY FURTHER NEEDS AT THIS TIME. CALL LIGHT WITHIN REACH. BED ALARM ON .
--- NOTE | 2024-09-17 14:30 | NUR ---
PATIENT ASSISTED TO BATHROOM. VOID IN TOILET QUANITY SUFFICIENT, SM BM NOTED. PATIENT AMBULATED BACK TO BED WITH 1 PA ASSIST AND FWW. NEW GOWN AND BREIF PLACED. PATIENT POWDER APPLIED. NO FURTHER NEEDS AT THIS TIME. CALL LIGHT WITHIN. BED ALARM ON.
--- NOTE | 2024-09-17 15:02 | NUR ---
REPORT RECEIVED FROM PRIMARY RN. PT SITTING UP IN THE CHAIR CARE COORDINATED WITH WOUND CARE NURSE R/T LLE SWELLING AND WOUND DRAINAGE. PT APPEARS CONTENT NO C/O DISCOMFORT OR REQUEST OF NEED
[2024-09-17] MEDS ORDERED: KETOROLAC TROMETHAMINE 15 MG/ML VIAL IV ONE (15:30)
[2024-09-17] MEDS ORDERED: FUROSEMIDE 20 MG/2 ML VIAL IV ONE (15:30)
[2024-09-17] MEDS ORDERED: TRAZODONE HCL 50 MG TAB PO PRN (15:30)
--- NOTE | 2024-09-17 17:10 | NUR ---
PT RESTING IN BED LLE ELEVATED ON PILLOWS DRESSING CDI. PT AGREES TORDOL WAS EFFECTIVE DENIES FURTHER NEEDS
--- NOTE | 2024-09-17 17:56 | NUR ---
PATIENT UP TO BATHROOM AND THEN TO CHAIR, SBA FWW. VITALS AND I&O'S DONE AND CHARTED. CALL LIGHT IN REACH. NO FURTHER NEEDS AT THIS TIME.
--- NOTE | 2024-09-17 19:15 | NUR ---
RECEIVED REPORT. PT AWAKE AND IN RECLINER WITH FEET ELEVATED. VITALS, BP 99/45 WITH MAP 59, HR 105. BP 98/59 (69) ON RETAKE. NOTIFIED CHARGE AND MD. BROUGHT PT ICE AND SUGAR FREE JELLO ON REQUEST. CALL LIGHT IN REACH ON SIDE TABLE, CHAIR ALARM ACTIVE.
--- NOTE | 2024-09-17 22:01 | NUR ---
ASSESSMENT AND EVENING MEDS. REASSESED VITALS, MEWS SCORE OF 2. GAVE CUP OF ICE PER REQUEST. PT TALKING WITH FRIEND ON PHONE, L FOOT ELEVATED. CALL LIGHT IN REACH
--- NOTE | 2024-09-17 23:19 | NUR ---
PT IN RECLINER, TALKING ON PHONE. CALL LIGHT IN REACH ON TABLE
[2024-09-18] VITALS (8 sets, daily range): BP systolic 111–128; BP diastolic 44–89
--- NOTE | 2024-09-18 01:23 | NUR ---
PT RESTING IN CHAIR WITH EYES CLOSED, RISE AND FALL OF CHEST NOTED. CALL LIGHT IN REACH
--- NOTE | 2024-09-18 02:27 | NUR ---
ASSISTED TO BATHROOM AND BACK TO BED. GIVEN WARM BLANKETS ADN ICE. CALL LIGHT IN REACH, BED ALARM ACTIVE.
--- NOTE | 2024-09-18 03:59 | NUR ---
PT IN BED WITH EYES CLOSED, OBSERVED RISE AND FALL OF CHEST. CALL LIGHT IN REACH AND BED ALARM ACTIVE
[2024-09-18 05:21] LABS: BASOPHILS 0.1 % (0-2); EOSINOPHILS 2.7 % (0-6); HEMATOCRIT 21.6 % (35.0-50.0); LYMPHOCYTES 12.3 % (24-44); MCH 22.6 (27-36); MCHC 32.5 g/dl (30-36); MCV 69.7 fl (81-99); MONOCYTES 3.1 % (0-12); NEUTROPHILS 81.8 % (39-80); PLATELET COUNT 318 K/uL (140-440); RBC 3.09 M/ul (4.3-5.7); RDW 22.3 (10.5-15.0)
[2024-09-18 05:44] LABS: ALBUMIN 1.5 g/dL (3.4-5.0); ALBUMIN/GLOBULIN RATIO 0.39 (1.1-2.4); ANION GAP 11.8 (7-21); BILIRUBIN, TOTAL 0.2 mg/dL (0.2-1.0); BUN/CREATININE RATIO 20.22 (6.0-28.6); CALCIUM 7.9 mg/dL (8.5-10.1); CREATININE, SERUM 0.89 mg/dL (0.55-1.02); POTASSIUM 4.8 mmol/L (3.5-5.1); PROTEIN, TOTAL 5.3 g/dL (6.4-8.2)
--- NOTE | 2024-09-18 07:12 | NUR ---
VERBAL REPORT RECEIVED FROM TRINI ARRIETA. PT AWAKE AND ALERT, NO REQUESTS AT THIS TIME.
--- NOTE | 2024-09-18 07:59 | NUR ---
Reviewed documentation from the weekend. Per progress notes pt is willing to go to a SNF for cont. care. Spoke with Ana. She would like to be placed in [facility] [place] as her sisters relative lived there. Let her know I will fax her chart to check for an opening. Pt pleasant. Face sheet, H&P, last 3 days of progress notes, imaging, labs, PT/OT note, wound note faxed to Lindsay at [facility] [place]. Pt wants to return to [place] as this is where she and her sister live.
[2024-09-18] MEDS ORDERED: FERROUS SULFATE 325 MG TAB PO SCH (08:09)
[2024-09-18] MEDS ORDERED: MAGNESIUM OXIDE 400 MG TABLET PO ONE (08:15)
--- NOTE | 2024-09-18 10:15 | NUR ---
PT LEAVES UNIT VIA WHEELCHAIR TO IMAGING.
[2024-09-18] MEDS ORDERED: DIATRIZOATE MEGLU/DIATRIZO SOD 15 ML BTL PO ONE (12:45)
--- NOTE | 2024-09-18 13:07 | NUR ---
PT LEAVES UNIT VIA WHEELCHAIR FOR IMAGING PROCEDURE.
--- NOTE | 2024-09-18 13:20 | NUR ---
PT RETURNS TO MED-SURG ROOM 115 VIA WHEELCHAIR, ESCORTED BY NATACHA FROM IMAGING.
--- NOTE | 2024-09-18 15:35 | NUR ---
Rounding on patient. Patient requested more ice. Patient calls to the [facility] to order meals. Call light has been placed within reach no request from patient at this time
[2024-09-18] MEDS ORDERED: HEParin SOD (PORCINE) 5,000 UNIT/ML SYR IV PRN ×3 (15:45)
[2024-09-18] MEDS ORDERED: HEParin SOD (PORCINE) 5,000 UNIT/ML SYR IV ONE (15:45)
[2024-09-18] MEDS ORDERED: HEPARIN SOD,PORK IN 0.45% NACL 500 ML IV SCH (15:45)
[2024-09-18 16:00] LABS: PARTIAL THROMBOPLASTIN TIME 38.3 Sec (22.9-41.3)
[2024-09-18 16:01] LABS: INR 1.82 (0.80-1.30); PROTIME 21.1 Sec (11.2-14.2)
--- NOTE | 2024-09-18 16:01 | NUR ---
Notified by staff, pt will be shipped to higher level of care. SNF and WC van cancelled.
[2024-09-18 16:55] LABS: ABO A; ANTIBODY SCREEN NEGATIVE; IS CROSSMATCH COMPATIBLE; RH POSITIVE
[2024-09-18 17:21] LABS: BASOPHILS 0.2 % (0-2); EOSINOPHILS 2.2 % (0-6); HEMATOCRIT 23.4 % (35.0-50.0); HEMOGLOBIN 7.6 g/dL (12.0-18.0); LYMPHOCYTES 15.7 % (24-44); MCH 22.8 (27-36); MCHC 32.3 g/dl (30-36); MCV 70.6 fl (81-99); MONOCYTES 4.6 % (0-12); NEUTROPHILS 77.3 % (39-80); PLATELET COUNT 330 K/uL (140-440); RBC 3.32 M/ul (4.3-5.7); RDW 22.8 (10.5-15.0)
[2024-09-18] MEDS ORDERED: HEParin SOD (PORCINE) 1,000 UNITS/ML VIAL ONE (17:30)
[2024-09-18] MEDS ORDERED: HEParin SOD (PORCINE) 5,000 UNIT/ML SDV ONE (17:33)
--- NOTE | 2024-09-18 17:58 | NUR ---
HEPARIN BOLUS 5300 UNITS RECEIVED. HEPARIN DRIP INFUSING AT 24.1 ML/HR, SEE PAPER HEPARIN RECORD. TRINIDAD Chirinos RN VERIFIES DOSE.
--- NOTE | 2024-09-18 17:58 | NUR ---
CALCULATED AND COSIGNED BOLUS HEPARIN DOSE AND HEPARIN DRIP WITH TRINI JAIN.
--- NOTE | 2024-09-18 18:37 | NUR ---
LLE DRESSING REMOVED FOR OBSERVATION BY DR. ALDRIDGE. SKIN IS WARM AND PINK, METAL MODEL MAKER <3. LLE DP STRONG. MODERATE AMOUNT OF SEROUS DRAINAGE NOTED FROM WOUNDS. NEW DRESSING APPLIED. BACITRACIN OINTMENT, ADAPTIC, AND ABD PADS, SECURED WITH KERLIX. PT TOLERATED WELL.
--- NOTE | 2024-09-18 19:07 | NUR ---
1 UNIT PRBC STARTED AT 1800. EDUCATION ON TRANSFUSION REACTION PROVIDED, PT VERBALIZES UNDERSTANDING. LANRE, RN IN ROOM WITH PT MONITORING DURING FIRST 15 MINUTES OF TRANSFUSION.
--- NOTE | 2024-09-18 19:18 | NUR ---
PT RECIEVING BLOOD. FIRST 15MIN PT TOLERATED WELL. DENIES DISCOMFORT. VSS. INCREASED RATE TO 250 ML/HR.
--- NOTE | 2024-09-18 20:31 | NUR ---
VITALS, ASSESSMENT, EVENING MEDS. BLOOD ADMINISTRATION FINISHED, TOOK POST-VITALS AND BREATHING ASSESSMENT. GATHERED PT BELONGINGS IN PREPARATION FOR TXF TO [facility]. CALL LIGHT IN REACH
--- NOTE | 2024-09-18 21:03 | NUR ---
2054 CALL RECEIVED FROM [facility]. FIXED WING ARRIVAL TO AIRPORT TO BE AT 2230 AND LOCAL [facility] ENROUTE TO PACKAGE PATIENT.
--- NOTE | 2024-09-18 21:57 | NUR ---
TRANSPORTATION HERE TO RECEIVE PT. GAVE REPORT TO TRANSPORT AND TRINI PALUMBO AT [facility]. PT BELONGINGS WITH PT. ATTEMPTED TO CONTACT PT SISTER AGAIN, LEFT VOICEMAIL ASKING FOR CALL BACK. PT LEAVING WITH EMS
== END 2024-09-18 22:10 | disposition short-term general hospital (02) | DRG 300 ==
LOC: ED 13:07 → MS 16:36
PROVIDERS: Emergency Medicine; ADMIT Family Medicine; ATTEND Student in an Organized Health Care Education/Training Program
PROC: 30233N1 Transfusion of Nonautologous Red Blood Cells into Peripheral Vein, Percutaneous Approach (ICD-10-PCS; principal; 2024-09-13)
DX: I82.412 Acute embolism and thrombosis of left femoral vein (principal); C20 Malignant neoplasm of rectum; L03.116 Cellulitis of left lower limb; N39.0 Urinary tract infection, site not specified; Z16.24 Resistance to multiple antibiotics; I82.432 Acute embolism and thrombosis of left popliteal vein; I82.422 Acute embolism and thrombosis of left iliac vein; B96.20 Unspecified Escherichia coli [E. coli] as the cause of diseases classified elsewhere; D63.0 Anemia in neoplastic disease; E11.65 Type 2 diabetes mellitus with hyperglycemia; F20.9 Schizophrenia, unspecified; Z88.8 Allergy status to other drugs, medicaments and biological substances; Z87.891 Personal history of nicotine dependence
CPT/HCPCS: 36415; 36430; 51701; 71045; 73706; 74177; 80048; 80053; 81001; 83036; 83605; 83735; 84100; 85025; 85060; 85610; 85730; 86850; 86900; 86901; 86922; 87040; 87077; 87088; 87186; 93005; 93010; 97116; 97162; 97165; 97530; 99284-25; A9270; J0690; J0696; J1644; J1815; J1885; J1940; J2020; J3475; J7030; P9016; Q9967

== ENCOUNTER 2025-01-18 11:53 | Emergency (ER) | payer OTHER ==
[~2025-01-18] VITALS: Ht 162.6 cm; Wt 89.8 kg
[2025-01-18 13:06] LABS: BLOOD/HGB, URINE NEGATIVE (Negative); KETONE, URINE NEGATIVE (Negative); LEUK ESTERASE, URINE SMALL (negative); NITRITE, URINE NEGATIVE (negative)
[2025-01-18 13:11] LABS: BACTERIA, URINE RARE /hpf (negative); CASTS, URINE NONE SEEN \\lpf; CRYSTALS, URINE NONE SEEN (0-1+); EPITHELIAL CELLS, URINE 0 /lpf (0-1+); REFLEX CULTURE, URINE Yes (No)
[2025-01-18 14:18] LABS: ALT (SGPT) 35.0 U/L (14-59); AST (SGOT) 18.0 U/L (15-37); GLOMERULAR FILTRATION RATE,EST 100.0 mL/min (>60); PROTEIN, TOTAL 8.0 g/dL (6.4-8.2); UREA NITROGEN 12.0 mg/dL (7-18)
[2025-01-18 14:21] LABS: INR 0.94 (0.80-1.30); PROTIME 12.2 Sec (11.2-14.2)
[2025-01-18 16:29] LABS: BASOPHILS 0.3 % (0.1-1.2); EOSINOPHILS 1.9 % (0.7-5.8); LYMPHOCYTES 33.6 % (19.3-51.7); MCH 26.9 PG (25.6-32.2); MCHC 32.4 g/dL (32.2-35.5); MCV 82.9 fL (79.4-94.8); MONOCYTES 3.7 % (4.7-12.5); NEUTROPHILS 60.1 % (34.0-71.1); RBC 4.28 M/uL (3.93-5.22)
[2025-01-18 17:40] VITALS: BP 159/72
== END 2025-01-18 17:48 | disposition home or self-care (01) ==
LOC: ED 11:53
PROVIDERS: Emergency Medicine
DX: R10.32 Left lower quadrant pain (principal); E11.9 Type 2 diabetes mellitus without complications; Z87.891 Personal history of nicotine dependence; Z88.8 Allergy status to other drugs, medicaments and biological substances
CPT/HCPCS: 36415; 74177; 80053; 81001; 83690; 85025; 85610; 87088; 99284-25; Q9967